=== PATIENT | male | born 1985 | race African-American/Black ===

== ENCOUNTER 2021-08-31 17:28 | Emergency (ER) | payer OTHER ==
[~2021-08-31] VITALS: Ht 177.8 cm; Wt 93.0 kg
[2021-08-31 18:41] LABS: ABSOLUTE NEUTROPHILS 3.9 thou/uL (1.4-8.2); BASOPHILS 0.8 % (0.0-2.0); EOSINOPHILS 2.7 % (0.0-3.0); HEMOGLOBIN 15.5 gm/dL (14.0-18.0); MCH 31.4 pg (26.0-34.0); MCHC 33.8 g/dL (28.0-37.0); MONOCYTES 6.1 % (1.0-8.0); PLATELET COUNT 229 thou/uL (150-400); POLYS 51.4 % (36.0-66.0); RBC 4.95 mil/uL (4.50-6.00); RDW 12.9 % (10.5-14.5); WBC 7.7 thou/uL (4.0-11.0)
[2021-08-31 18:47] LABS: CALCIUM 9.6 mg/dL (8.5-10.1); POTASSIUM 3.3 mmol/L (3.5-5.1)
[2021-08-31 18:55] LABS: ALBUMIN 4.1 g/dL (3.4-5.0); TOTAL BILIRUBIN 0.8 mg/dL (0.2-1.0); TOTAL PROTEIN 7.8 g/dL (6.4-8.2)
[2021-08-31] MEDS ORDERED: PRILOSEC OTC20 MG PO (19:55)
[2021-08-31 20:09] VITALS: BP 158/117
== END 2021-08-31 21:47 | disposition home or self-care (01) ==
LOC: ER 17:28
PROVIDERS: Nurse Practitioner
DX: E87.6 Hypokalemia (principal); F41.9 Anxiety disorder, unspecified; I10 Essential (primary) hypertension; K21.9 Gastro-esophageal reflux disease without esophagitis; F12.90 Cannabis use, unspecified, uncomplicated; Z77.22 Contact with and (suspected) exposure to environmental tobacco smoke (acute) (chronic)